=== PATIENT | female | born 1960 | race Caucasian/White ===

== ENCOUNTER → 2016-12-03 | Outpatient (CLI) | payer BC ==
[~2016-12-03] MED LIST: LACT1CAP8 PO; METO100T5 PO; MULT-245 PO; VALS1TAB8 PO
--- NOTE | 2016-12-04 09:33 | RAD ---
DATE: 12/03/2016 EXAM: MAMMO XUAN SCREENING BILATERAL HISTORY: Screening COMPARISON: 3 years earlier This study was interpreted with the benefit of Computerized Aided Detection (CAD). FINDINGS: The breast parenchyma shows scattered fibroglandular densities. Breast parenchyma level B. There has not been a significant change in the appearance of the breasts compared to the previous exam IMPRESSION: Benign finding BI-RADS CATEGORY: 2 BENIGN FINDING(S) RECOMMENDED FOLLOW-UP: 12M 12 MONTH FOLLOW-UP PQRS compliance statement: Patient information was entered into a reminder system with a target due date 12/03/2017 for the next mammogram. Mammography is a sensitive method for finding small breast cancers, but it does not detect them all and is not a substitute for careful clinical examination. A negative mammogram does not negate a clinically suspicious finding and should not result in delay in biopsying a clinically suspicious abnormality. "Our facility is accredited by the [employer] Mammography Program."
== END | disposition home or self-care (01) ==
LOC: MAMMO 12:39
PROVIDERS: ATTEND Nurse Practitioner Family
DX: Z12.31 Encounter for screening mammogram for malignant neoplasm of breast (principal)
CPT/HCPCS: 77063; G0202; 77067

== ENCOUNTER → 2017-12-20 | Outpatient (CLI) | payer BC ==
[2017-12-20 15:05] LABS: CALCIUM 9.2 mg/dL (8.5-10.1); CREATININE 0.8 mg/dL (0.6-1.0); GFR 73.7; POTASSIUM 3.9 mmol/L (3.5-5.1)
== END | disposition home or self-care (01) ==
LOC: LAB 14:25
PROVIDERS: ATTEND Internal Medicine Cardiovascular Disease
DX: I10 Essential (primary) hypertension (principal); E78.5 Hyperlipidemia, unspecified
CPT/HCPCS: 36415; 80048; 80061

== ENCOUNTER 2018-05-24 20:27 | Inpatient (IN) | payer BC ==
[~2018-05-24] VITALS: Ht 162.6 cm; Wt 93.2 kg
[2018-05-24] MEDS ORDERED: IV NORMAL SALINE 1,000ML 1,000 ML IV ONE ×2 (21:00→22:00)
[2018-05-24 21:27] LABS: BASO # 0.1 x10^3/uL (0.0-0.2); BASO % 1 % (0-3); EOS % 0 % (0-3); HEMATOCRIT 44.8 % (36.0-47.0); HEMOGLOBIN 15.4 g/dL (12.0-15.5); LYMPH # 1.5 x10^3/uL (1.0-4.8); LYMPH % 12 % (24-48); MEAN CORPUSCULAR HEMOGLOBIN 31 pg (25-35); MEAN CORPUSCULAR HGB CONC 34 g/dL (31-37); MEAN CORPUSCULAR VOLUME 91 fL (79-100); MONO % 8 % (0-9); NEUT # 10.8 x10^3uL (1.8-7.7); NEUT % 80 % (31-73); PLATELET COUNT 279 x10^3/uL (140-400); RED BLOOD COUNT 4.95 x10^6/uL (3.50-5.40); RED CELL DISTRIBUTION WIDTH 13.2 % (11.5-14.5); WHITE BLOOD COUNT 13.4 x10^3/uL (4.0-11.0)
[2018-05-24 21:35] LABS: BACTERIA,URINE MANY /HPF (0-FEW); BILIRUBIN,URINE NEG (NEG); CLARITY,URINE CLOUDY; COLOR,URINE YELLOW; GLUCOSE,URINE NEG (NEG); NITRITE,URINE NEG (NEG); RBC,URINE RARE /HPF (0-2); UROBILINOGEN,URINE 0.2 mg/dL (0.2 mg/dL); WBC,URINE >40 /HPF (0-4)
--- NOTE | 2018-05-24 21:58 | PHYS DOC ---
Past History Past Medical History: Hypertension Past Surgical History: Cholecystectomy, Hysterectomy Alcohol Use: None Drug Use: None Adult General Chief Complaint Chief Complaint: FEVER HPI HPI 57-year-old female presents with fever. Patient states she had a fever up to 103 today. She has been having dysuria and urinary frequency for the last 1 week. She has been trying to treat this naturally, realized it was not working when she developed a fever. She has had some nausea with no vomiting. She does not frequently have UTIs. She does not believe she is ever had a resistant UTI. Patient also reports an intermittent cough the last few days but it is not productive. Review of Systems Review of Systems Constitutional: Fever[] Eyes: Denies change in visual acuity, redness, or eye pain [] HENT: Denies nasal congestion or sore throat [] Respiratory: Denies cough or shortness of breath [] Cardiovascular: No additional information not addressed in HPI [] GI: Denies abdominal pain, nausea, vomiting, bloody stools or diarrhea [] : Dysuria and urinary frequency[] Musculoskeletal: Denies back pain or joint pain [] Integument: Denies rash or skin lesions [] Neurologic: Denies headache, focal weakness or sensory changes [] Endocrine: Denies polyuria or polydipsia [] All other systems were reviewed and found to be within normal limits, except as documented in this note. Current Medications Current Medications Current Medications Medications (Trade) Dose Ordered Sig/[facility] Start Time Stop Time Status Last Admin Dose Admin Ketorolac Tromethamine (Toradol 30mg Vial) 30 mg 1X ONCE 05/24/18 21:30 05/24/18 21:31 UNV Sodium Chloride 1,000 ml @ 1,000 mls/hr 1X ONCE 05/24/18 21:00 05/24/18 21:59 05/24/18 21:00 1,000 MLS/HR Allergies Allergies Allergies Coded Allergies Type Severity Reaction Last Updated Verified cephalexin Allergy Severe 05/24/18 Yes acetaminophen Allergy Mild Nausea 09/18/13 No oxycodone HCl Allergy Mild Nausea 09/18/13 No Physical Exam Physical Exam Constitutional: Well developed, well nourished, no acute distress, non-toxic appearance. [] HENT: Normocephalic, atraumatic, bilateral external ears normal, oropharynx dry , no oral exudates, nose normal. [] Eyes: PERRLA, EOMI, conjunctiva normal, no discharge. [] Neck: Normal range of motion, no tenderness, supple, no stridor. [] Cardiovascular:Heart rate regular rhythm, tachycardia, 120, no murmur [] Lungs & Thorax: Bilateral breath sounds clear to auscultation. Respirations 25. [] Abdomen: Bowel sounds normal, soft, no tenderness, no masses, no pulsatile masses. [] Skin: Warm, dry, no erythema, no rash. [] Back: No tenderness, no CVA tenderness. [] Extremities: No tenderness, no cyanosis, no clubbing, ROM intact, no edema. [] Neurologic: Alert and oriented X 3, normal motor function, normal sensory function, no focal deficits noted. [] Psychologic: Affect normal, judgement normal, mood normal. [] Current Patient Data Vital Signs Vital Signs Date Time Temp Pulse Resp B/P (MAP) Pulse Ox O2 Delivery O2 Flow Rate FiO2 05/24/18 20:36 102.6 120 20 Room Air Lab Results Laboratory Tests Test 05/24/18 20:59 White Blood Count 13.4 x10^3/uL (4.0-11.0) H Red Blood Count 4.95 x10^6/uL (3.50-5.40) Hemoglobin 15.4 g/dL (12.0-15.5) Hematocrit 44.8 % (36.0-47.0) Mean Corpuscular Volume 91 fL (79-100) Mean Corpuscular Hemoglobin 31 pg (25-35) Mean Corpuscular Hemoglobin Concent 34 g/dL (31-37) Red Cell Distribution Width 13.2 % (11.5-14.5) Platelet Count 279 x10^3/uL (140-400) Neutrophils (%) (Auto) 80 % (31-73) H Lymphocytes (%) (Auto) 12 % (24-48) L Monocytes (%) (Auto) 8 % (0-9) Eosinophils (%) (Auto) 0 % (0-3) Basophils (%) (Auto) 1 % (0-3) Neutrophils # (Auto) 10.8 x10^3uL (1.8-7.7) H Lymphocytes # (Auto) 1.5 x10^3/uL (1.0-4.8) Monocytes # (Auto) 1.0 x10^3/uL (0.0-1.1) Eosinophils # (Auto) 0.0 x10^3/uL (0.0-0.7) Basophils # (Auto) 0.1 x10^3/uL (0.0-0.2) Urine Collection Type Unknown Urine Color Yellow Urine Clarity Cloudy Urine pH 5.5 Urine Specific [place] 1.020 Urine Protein 100 mg/dl (NEG-TRACE) Urine Glucose (UA) Neg mg/dL (NEG) Urine Ketones (Stick) 15 mg/dL (NEG) Urine Blood Mod (NEG) Urine Nitrite Neg (NEG) Urine Bilirubin Neg (NEG) Urine Urobilinogen Dipstick 0.2 mg/dL (0.2 mg/dL) Urine Leukocyte Esterase Large (NEG) Urine RBC Rare /HPF (0-2) Urine WBC >40 /HPF (0-4) Urine Squamous Epithelial Cells None /LPF Urine Bacteria Many /HPF (0-FEW) Urine Mucus Slight /LPF EKG EKG [] Radiology/Procedures Radiology/Procedures [] Course & Med Decision Making Course & Med Decision Making Pertinent Labs and Imaging studies reviewed. (See chart for details) The patient has a suspected UTI. She has a temperature of 102.6. Her respirations are 25 a minute. Her blood pressure is within normal limits. Based on these, the patient meets criteria for possible sepsis. Fluids have been started. Labs are pending. As this is likely urinary, I will give her vancomycin and meropenem. Her white count is 13.4. Her urinalysis is positive for infection. I will have the patient admitted for UTI sepsis. I discussed the case with Dr. Aguila and he has accepted the patient for admission. Greater than 35 minutes of critical care time was performed on this patient exclusive of any other billable procedures. [] Dragon Disclaimer Dragon Disclaimer This electronic medical record was generated, in whole or in part, using a voice recognition dictation system. Departure Departure: Referrals: ADOLFO WALLS MD (PCP) YAMILET FRENCH DO May 24, 2018 21:58
[2018-05-24] MEDS ORDERED: KETOROLAC 30 MG/ML VIAL. IV ONE (22:00)
[2018-05-24 22:23] LABS: ALBUMIN 3.5 g/dL (3.4-5.0); CALCIUM 8.3 mg/dL (8.5-10.1); CREATININE 0.9 mg/dL (0.6-1.0); GFR 64.3; POTASSIUM 3.6 mmol/L (3.5-5.1); TOTAL BILIRUBIN 0.6 mg/dL (0.2-1.0); TOTAL PROTEIN 7.1 g/dL (6.4-8.2)
[2018-05-24] MEDS ORDERED: MEROPENEM 1 GM in IV NORMAL SALINE 100ML 100 ML IV STA (22:23)
[2018-05-24] MEDS ORDERED: MEROPENEM 1 GM VIAL IV ONE (22:25)
[2018-05-24] MEDS ORDERED: IV NORMAL SALINE 100ML 100 ML ONE (22:25)
[2018-05-24] MEDS ORDERED: VANCOMYCIN 2 GM in IV NORMAL SALINE 500ML 500 ML IV ONE (23:00)
[2018-05-24] MEDS ORDERED: ONDANSETRON PF 4 MG/2 ML VIAL. IV PRN (23:45)
[2018-05-24] MEDS ORDERED: IV NORMAL SALINE 1,000ML 500 ML IV SCH (23:45)
[2018-05-24] MEDS ORDERED: ONDANSETRON ODT 4 MG TAB.RAPDIS PO PRN (23:45)
[2018-05-24] MEDS ORDERED: IV NORMAL SALINE 1,000ML 1,000 ML IV SCH (23:45)
--- NOTE | 2018-05-24 23:45 | NUR ---
Pt was admitted from ER to [facility] room 115 via [facility], accompanied by EMS and nursing staff. Pt transferred over from gurney to bed independently. Pt then ambulated to bathroom with stand-by assist, steady gait noted. Pt here for fever, UTI and sepsis. Pt is A&Ox4, pleasant and cooperative. Pt currently denies pain or discomfort. Admission assessment completed. Health history and home medications reviewed with pt. VSS. Pt lives at home with . SCDs for VTE. Pt wants flu vaccine, order placed. Pt was given written information regarding hospital policies, unit procedures and contact persons. Valuables were checked and left at bedside. Call light within reach and bed alarm on. Pt given box lunch per request. IVF and Vanco started per order.
[2018-05-24] MEDS ORDERED: IV NORMAL SALINE 500ML 500 ML ONE (23:48)
[2018-05-24] MEDS ORDERED: VANCOMYCIN 1 GM VIAL. ONE (23:49)
[2018-05-25 00:08] VITALS: BP 146/85
[2018-05-25] MEDS ORDERED: VALS1TAB29 PO (00:52)
[2018-05-25] MEDS: IBUPROFEN 600 MG TABLET. PO PRN ×2 (05:07→19:55)
[2018-05-25 05:47] VITALS: BP 163/76
[2018-05-25 05:48] LABS: BASO # 0.1 x10^3/uL (0.0-0.2); BASO % 1 % (0-3); EOS # 0.1 x10^3/uL (0.0-0.7); EOS % 1 % (0-3); HEMATOCRIT 40.4 % (36.0-47.0); HEMOGLOBIN 13.6 g/dL (12.0-15.5); LYMPH # 2.3 x10^3/uL (1.0-4.8); LYMPH % 18 % (24-48); MEAN CORPUSCULAR HEMOGLOBIN 31 pg (25-35); MEAN CORPUSCULAR HGB CONC 34 g/dL (31-37); MEAN CORPUSCULAR VOLUME 92 fL (79-100); MONO # 1.8 x10^3/uL (0.0-1.1); MONO % 15 % (0-9); NEUT # 8.2 x10^3uL (1.8-7.7); NEUT % 66 % (31-73); PLATELET COUNT 234 x10^3/uL (140-400); RED BLOOD COUNT 4.38 x10^6/uL (3.50-5.40); RED CELL DISTRIBUTION WIDTH 13.1 % (11.5-14.5); WHITE BLOOD COUNT 12.4 x10^3/uL (4.0-11.0)
[2018-05-25 05:55] LABS: CALCIUM 8.1 mg/dL (8.5-10.1); CREATININE 0.8 mg/dL (0.6-1.0); GFR 73.7; POTASSIUM 3.7 mmol/L (3.5-5.1)
[2018-05-25] MEDS: IV NORMAL SALINE 1,000ML 1,000 ML IV SCH ×2 (08:18→19:55)
--- NOTE | 2018-05-25 08:42 | PDOC1 ---
History and Physical Date of Admission: Date of Admission: May 24, 2018 Chief Complaint: Chief Complain: Fever Source: Source: Caregiver, Chart review, Patient HPI: HPI: 57-year-old female presented to the [facility] emergency department with chief complaint of fever. Patient states she had a fever up to 103 degrees Fahrenheit at home. She had been having dysuria and urinary frequency for the last 1 week, trying to treat this naturally. She became concerned that her natural methods were not working when she developed a fever. She has had some nausea but no vomiting. She does not frequently have UTIs. She does not believe she is ever had a resistant UTI. Patient also reports an intermittent cough the last few days but it is not productive. In the emergency department she was found to have a temperature of 102.6F with a heart rate 120 bpm and 25 respirations per minute. White blood cell count 13.4, her lactic acid was 0.8 and urinalysis grossly positive for infection. She met criteria for possible sepsis and was started on meropenem and vancomycin, given IV hydration, admitted to the medical floor for treatment and await blood and urine cultures. Today she's been afebrile and states she is feeling much better. Denies any flank or abdominal pain no nausea chest pain or dyspnea. Past Medical History: Cardiovascular: HTN Renal/: UTI Past Surgical History: PSH: Cholecystectomy, hysterectomy Family History: Family History: Cancer (mother with kidney cancer), Hypertension (both parents) Social History: Smoke: No Alcohol: none Drugs: None Allergies: Allergies: Coded Allergies: cephalexin (Verified Allergy, Severe, 05/24/18) oxycodone HCl (Unverified Allergy, Mild, Nausea, 09/18/13) Current Medications: Current Medications: Current Medications Medications (Trade) Dose Ordered Sig/[facility] Start Time Stop Time Status Last Admin Dose Admin Ibuprofen (Motrin) 600 mg PRN Q6HRS PRN 05/24/18 23:45 05/25/18 05:07 600 MG Influenza Virus Vaccine (Afluria Trivalent [id number] Syringe) 0.5 ml ONCE ONCE 05/25/18 09:00 05/25/18 09:01 Ketorolac Tromethamine (Toradol 30mg Vial) 30 mg 1X ONCE 05/24/18 22:00 05/24/18 22:01 DC 05/24/18 22:33 30 MG Meropenem (Merrem) 1 gm STK-MED ONCE 05/24/18 22:25 05/24/18 22:26 DC Meropenem 1 gm/ Sodium Chloride 100 ml @ 200 mls/hr 1X STAT 05/24/18 22:23 05/24/18 22:52 DC 05/24/18 22:32 200 MLS/HR Ondansetron HCl (Zofran Odt) 4 mg PRN Q6HRS PRN 05/24/18 23:45 Ondansetron HCl (Zofran) 4 mg PRN Q4HRS PRN 05/24/18 23:45 05/25/18 23:44 Sodium Chloride 1,000 ml @ 100 mls/hr Q10H 05/25/18 08:15 05/25/18 08:18 100 MLS/HR Vancomycin HCl (Vancomycin) 1 gm STK-MED ONCE 05/24/18 23:49 05/24/18 23:50 DC Vancomycin HCl 2 gm/Sodium Chloride 500 ml @ 250 mls/hr 1X ONCE 05/24/18 23:00 05/25/18 00:59 DC 05/25/18 00:27 250 MLS/HR ROS: ROS: Constitutional: See history of present illness Eyes: No eye pain or blurred vision Skin: No rash or itching Cardiovascular: No chest pain, syncope, palpitations, dyspnea on exertion, has some chronic lower extremity edema states it's currently at baseline Respiratory: No cough or difficulty breathing Gastrointestinal: No nausea, vomiting, or abdominal pain Neurologic: No headaches or focal neurologic deficits Endocrine: No heat or cold intolerance Genitourinary: No incontinence see history of present illness Musculoskeletal: No joint pain or swelling Lymphatics: No enlarged lymph nodes Psychiatric: No anxiety or depression PE: PE: Gen.: Alert, pleasant, no apparent distress HEENT: Normocephalic atraumatic, PERRLA EOMI, no scleral icterus, oral mucosa pink and moist Neck: Supple, no lymphadenopathy, nontender Cardiovascular: Normal S1 and S2 no murmurs Pulmonary: Lungs are clear bilaterally with good air movement no respiratory distress Abdomen: Soft nontender non-distended, bowel sounds present no masses Extremities: No clubbing, cyanosis 1+ nonpitting lower extremity edema bilaterally reportedly at baseline Neuro: Alert and oriented 3, cranial nerves II through XII grossly intact, no lateralizing neuro deficits Skin: Warm, dry Vitals: Vitals: Vital Signs Date Time Temp Pulse Resp B/P (MAP) Pulse Ox O2 Delivery O2 Flow Rate FiO2 05/25/18 08:12 Room Air 05/25/18 05:47 99.6 104 20 163/76 (105) 97 Labs: Labs: Laboratory Tests Test 05/24/18 20:59 05/24/18 21:50 05/25/18 05:35 White Blood Count 13.4 x10^3/uL (4.0-11.0) 12.4 x10^3/uL (4.0-11.0) Red Blood Count 4.95 x10^6/uL (3.50-5.40) 4.38 x10^6/uL (3.50-5.40) Hemoglobin 15.4 g/dL (12.0-15.5) 13.6 g/dL (12.0-15.5) Hematocrit 44.8 % (36.0-47.0) 40.4 % (36.0-47.0) Mean Corpuscular Volume 91 fL (79-100) 92 fL (79-100) Mean Corpuscular Hemoglobin 31 pg (25-35) 31 pg (25-35) Mean Corpuscular Hemoglobin Concent 34 g/dL (31-37) 34 g/dL (31-37) Red Cell Distribution Width 13.2 % (11.5-14.5) 13.1 % (11.5-14.5) Platelet Count 279 x10^3/uL (140-400) 234 x10^3/uL (140-400) Neutrophils (%) (Auto) 80 % (31-73) 66 % (31-73) Lymphocytes (%) (Auto) 12 % (24-48) 18 % (24-48) Monocytes (%) (Auto) 8 % (0-9) 15 % (0-9) Eosinophils (%) (Auto) 0 % (0-3) 1 % (0-3) Basophils (%) (Auto) 1 % (0-3) 1 % (0-3) Neutrophils # (Auto) 10.8 x10^3uL (1.8-7.7) 8.2 x10^3uL (1.8-7.7) Lymphocytes # (Auto) 1.5 x10^3/uL (1.0-4.8) 2.3 x10^3/uL (1.0-4.8) Monocytes # (Auto) 1.0 x10^3/uL (0.0-1.1) 1.8 x10^3/uL (0.0-1.1) Eosinophils # (Auto) 0.0 x10^3/uL (0.0-0.7) 0.1 x10^3/uL (0.0-0.7) Basophils # (Auto) 0.1 x10^3/uL (0.0-0.2) 0.1 x10^3/uL (0.0-0.2) Urine Collection Type Unknown Urine Color Yellow Urine Clarity Cloudy Urine pH 5.5 Urine Specific [place] 1.020 Urine Protein 100 mg/dl (NEG-TRACE) Urine Glucose (UA) Neg mg/dL (NEG) Urine Ketones (Stick) 15 mg/dL (NEG) Urine Blood Mod (NEG) Urine Nitrite Neg (NEG) Urine Bilirubin Neg (NEG) Urine Urobilinogen Dipstick 0.2 mg/dL (0.2 mg/dL) Urine Leukocyte Esterase Large (NEG) Urine RBC Rare /HPF (0-2) Urine WBC >40 /HPF (0-4) Urine Squamous Epithelial Cells None /LPF Urine Bacteria Many /HPF (0-FEW) Urine Mucus Slight /LPF Lactic Acid Level 0.8 mmol/L (0.4-2.0) Sodium Level 132 mmol/L (136-145) 137 mmol/L (136-145) Potassium Level 3.6 mmol/L (3.5-5.1) 3.7 mmol/L (3.5-5.1) Chloride Level 99 mmol/L (98-107) 103 mmol/L (98-107) Carbon Dioxide Level 24 mmol/L (21-32) 25 mmol/L (21-32) Anion Gap 9 (6-14) 9 (6-14) Blood Urea Nitrogen 14 mg/dL (7-20) 15 mg/dL (7-20) Creatinine 0.9 mg/dL (0.6-1.0) 0.8 mg/dL (0.6-1.0) Estimated GFR (Cockcroft-Gault) 64.3 73.7 BUN/Creatinine Ratio 16 (6-20) Glucose Level 134 mg/dL (70-99) 107 mg/dL (70-99) Calcium Level 8.3 mg/dL (8.5-10.1) 8.1 mg/dL (8.5-10.1) Total Bilirubin 0.6 mg/dL (0.2-1.0) Aspartate Amino Transf (AST/SGOT) 21 U/L (15-37) Alanine Aminotransferase (ALT/SGPT) 35 U/L (14-59) Alkaline Phosphatase 69 U/L (46-116) Total Protein 7.1 g/dL (6.4-8.2) Albumin 3.5 g/dL (3.4-5.0) Albumin/Globulin Ratio 1.0 (1.0-1.7) VTE Prophylaxis: VTE Prophylaxis Devices: No VTE Pharmacological Prophylaxi: No (patient is ambulatory) Assessment/Plan: A/P: SIRS Urinary tract infection Hypertension Mild hyponatremia We will go ahead and continue meropenem and vancomycin initiated in the emergency department, good clinical response. Continue IV hydration. Change meds to by mouth when able based upon urine cultures and await blood cultures. LEXY HUANG DO May 25, 2018 08:42
[2018-05-25 10:13] VITALS: BP 120/78
[2018-05-25] MEDS ORDERED: ACETAMINOPHEN 500 MG TABLET PO ONE (14:30)
[2018-05-25] MEDS: MEROPENEM 1 GM in IV NORMAL SALINE 100ML 100 ML IV SCH ×2 (14:57→21:29)
[2018-05-25] MEDS ORDERED: VANCOMYCIN 1.5 GM in IV NORMAL SALINE 500ML 500 ML IV ONE (15:00)
[2018-05-25] MEDS ORDERED: VANCOMYCIN 1.5 GM in IV NORMAL SALINE 500ML 500 ML IV SCH (15:00)
[2018-05-25] MEDS ORDERED: ACETAMINOPHEN 500 MG TABLET PO PRN (15:00)
[2018-05-25 15:22] VITALS: BP 145/87
[2018-05-25] MEDS: VANCOMYCIN PER PHARMACY MC PRN (18:50)
--- NOTE | 2018-05-25 18:50 | NUR ---
Pharmacy Vancomycin Dosing Note S:Consulted to monitor and dose vancomycin started 05/25/18. O:FANNY MAYER is a 57 year old F with Sepsis UTI . Height: 5 feet, 4 inches Weight: 91.886644 kg [place] Body Weight: Adjusted Body Weight: Dosing Weight: Actual Other Antibiotics: MEROPENEM 1GRAM Q8HRS LABS: Last BUN: 15 Last Creatinine: 0.8 Creatinine Clearance: Last WBC: 12.4 Last Platelets: 234 Tmax (past 24 hours): Microbiology: I/O: Drug Levels: Last level: on at Last dose given 05/25/18 at 1457 Vancomycin Dosing: Loading Dose: 2000 mg x1 Dosing Weight: Actual Target Trough: 15-20 A: Based on: P: 1. Begin Vancomycin 1500 mg IV q12h 2. Follow up Trough level on 05/26/18 at 1130 3. Pharmacy will continue to monitor, follow and adjust therapy as needed. SAMINA SHORT, [facility], 05/25/18 [id number]
[2018-05-25 19:40] VITALS: BP 161/77
[2018-05-25] MEDS: hydroCHLOROthiazide 25 MG TABLET PO SCH (19:55)
[2018-05-25] MEDS: LOSARTAN 50 MG TABLET. PO SCH (19:56)
[2018-05-25] MEDS: LACTOBACILLUS RHAMNOSUS GG 1 CAPSULE. PO SCH (21:29)
[2018-05-25] MEDS: BENZONATATE 100 MG CAPSULE. PO PRN (21:31)
[2018-05-25 22:59] VITALS: BP 138/77
[2018-05-25] MEDS: VANCOMYCIN 1.5 GM in IV NORMAL SALINE 500ML 500 ML IV SCH (23:36)
[2018-05-26] MEDS: IV NORMAL SALINE 1,000ML 1,000 ML IV SCH ×3 (05:20→21:04)
[2018-05-26] MEDS: BENZONATATE 100 MG CAPSULE. PO PRN ×3 (05:21→21:02)
[2018-05-26] MEDS: IBUPROFEN 600 MG TABLET. PO PRN ×2 (05:21→21:03)
[2018-05-26] MEDS: MEROPENEM 1 GM in IV NORMAL SALINE 100ML 100 ML IV SCH ×3 (05:22→21:03)
[2018-05-26 06:05] VITALS: BP 144/79
[2018-05-26 06:43] LABS: BASO # 0.1 x10^3/uL (0.0-0.2); BASO % 1 % (0-3); EOS # 0.3 x10^3/uL (0.0-0.7); EOS % 4 % (0-3); HEMATOCRIT 38.4 % (36.0-47.0); HEMOGLOBIN 13.2 g/dL (12.0-15.5); LYMPH # 1.9 x10^3/uL (1.0-4.8); LYMPH % 20 % (24-48); MEAN CORPUSCULAR HEMOGLOBIN 31 pg (25-35); MEAN CORPUSCULAR HGB CONC 34 g/dL (31-37); MEAN CORPUSCULAR VOLUME 91 fL (79-100); MONO # 1.2 x10^3/uL (0.0-1.1); MONO % 12 % (0-9); NEUT # 6.1 x10^3uL (1.8-7.7); NEUT % 64 % (31-73); PLATELET COUNT 218 x10^3/uL (140-400); RED BLOOD COUNT 4.22 x10^6/uL (3.50-5.40); RED CELL DISTRIBUTION WIDTH 13.4 % (11.5-14.5); WHITE BLOOD COUNT 9.6 x10^3/uL (4.0-11.0)
[2018-05-26 06:45] LABS: CALCIUM 8.4 mg/dL (8.5-10.1); CREATININE 0.9 mg/dL (0.6-1.0); GFR 64.3; POTASSIUM 3.6 mmol/L (3.5-5.1)
[2018-05-26] MEDS: LOSARTAN 50 MG TABLET. PO SCH (08:09)
[2018-05-26] MEDS: LACTOBACILLUS RHAMNOSUS GG 1 CAPSULE. PO SCH ×2 (08:09→21:02)
[2018-05-26] MEDS: hydroCHLOROthiazide 25 MG TABLET PO SCH (08:10)
[2018-05-26] MEDS: METOPROLOL SUCC 24HR ER 50 MG TAB.ER.24H. PO SCH (08:11)
--- NOTE | 2018-05-26 09:05 | NUR ---
PT feeling warm today. PT is able to verbalize understanding of poc. Rosita GARCIA
[2018-05-26 10:55] VITALS: BP 134/84
[2018-05-26 12:06] LABS: VANC TR 11.5 mcg/mL (10.0-20.0)
[2018-05-26] MEDS: VANCOMYCIN 1.5 GM in IV NORMAL SALINE 500ML 500 ML IV SCH ×2 (12:39→23:54)
[2018-05-26] MEDS: VANCOMYCIN PER PHARMACY MC PRN (13:26)
--- NOTE | 2018-05-26 13:26 | NUR ---
Pharmacy Vancomycin Dosing Note S:Consulted to monitor and dose vancomycin started 05/25/18. O:FANNY MAYER is a 57 year old F with SIRS UTI . Height: 5 feet, 4 inches Weight: 92.969718 kg [place] Body Weight: 54.70 Adjusted Body Weight: 69.74 Dosing Weight: Actual Other Antibiotics: MEROPENEM 1GRAM Q8HRS LABS: Last BUN: 10 Last Creatinine: 0.9 Creatinine Clearance: 75 Last WBC: 9.6 Last Platelets: 218 TEMP LAST: 98.2 Microbiology: PENDING Vancomycin Dosing: Loading Dose: 2000 mg x1 Dosing Weight: Actual Target Trough: 15-20 A: Vanco trough was 11.5, however, the patient is improving and also receiving Merrem. P: 1. Continue Vancomycin 1500 mg IV q12h 2. Follow up Trough level in 5-7 days 3. Pharmacy will continue to monitor, follow and adjust therapy as needed. MARA JAIN [facility] 05/26/18 [id number]
[2018-05-26 16:51] VITALS: BP 151/91
[2018-05-26 19:40] VITALS: BP 145/84
--- NOTE | 2018-05-26 19:48 | PDOC ---
Progress Note. Subjective: Patient remains afebrile and reports she feels her baseline. I find her sitting up in bed she has reportedly been ambulatory with good by mouth intake and no new bowel or bladder symptoms. Specifically continues to deny abdominal pain flank pain frequency hesitancy or dysuria and no hematuria. Her white blood cell count has normalized today and chemistry remained stable. She is wanting to go home but understands the need to wait for urine culture and sensitivities. Denies any new questions or complaints. Objective: Vital Signs: Vital Signs Date Time Temp Pulse Resp B/P (MAP) Pulse Ox O2 Delivery O2 Flow Rate FiO2 05/26/18 16:51 98.6 76 151/91 (111) 97 Room Air 05/26/18 10:55 18 I & O: Intake and Output 05/26/18 07:00 Intake Total 4229 ml Output Total 3550 ml Balance 679 ml Intake Oral 1250 ml IV Total 2979 ml Output Urine Total 3550 ml Labs: Laboratory Tests Test 05/24/18 20:59 05/24/18 21:50 05/25/18 05:35 05/26/18 05:59 White Blood Count 13.4 x10^3/uL (4.0-11.0) 12.4 x10^3/uL (4.0-11.0) 9.6 x10^3/uL (4.0-11.0) Red Blood Count 4.95 x10^6/uL (3.50-5.40) 4.38 x10^6/uL (3.50-5.40) 4.22 x10^6/uL (3.50-5.40) Hemoglobin 15.4 g/dL (12.0-15.5) 13.6 g/dL (12.0-15.5) 13.2 g/dL (12.0-15.5) Hematocrit 44.8 % (36.0-47.0) 40.4 % (36.0-47.0) 38.4 % (36.0-47.0) Mean Corpuscular Volume 91 fL (79-100) 92 fL (79-100) 91 fL (79-100) Mean Corpuscular Hemoglobin 31 pg (25-35) 31 pg (25-35) 31 pg (25-35) Mean Corpuscular Hemoglobin Concent 34 g/dL (31-37) 34 g/dL (31-37) 34 g/dL (31-37) Red Cell Distribution Width 13.2 % (11.5-14.5) 13.1 % (11.5-14.5) 13.4 % (11.5-14.5) Platelet Count 279 x10^3/uL (140-400) 234 x10^3/uL (140-400) 218 x10^3/uL (140-400) Neutrophils (%) (Auto) 80 % (31-73) 66 % (31-73) 64 % (31-73) Lymphocytes (%) (Auto) 12 % (24-48) 18 % (24-48) 20 % (24-48) Monocytes (%) (Auto) 8 % (0-9) 15 % (0-9) 12 % (0-9) Eosinophils (%) (Auto) 0 % (0-3) 1 % (0-3) 4 % (0-3) Basophils (%) (Auto) 1 % (0-3) 1 % (0-3) 1 % (0-3) Neutrophils # (Auto) 10.8 x10^3uL (1.8-7.7) 8.2 x10^3uL (1.8-7.7) 6.1 x10^3uL (1.8-7.7) Lymphocytes # (Auto) 1.5 x10^3/uL (1.0-4.8) 2.3 x10^3/uL (1.0-4.8) 1.9 x10^3/uL (1.0-4.8) Monocytes # (Auto) 1.0 x10^3/uL (0.0-1.1) 1.8 x10^3/uL (0.0-1.1) 1.2 x10^3/uL (0.0-1.1) Eosinophils # (Auto) 0.0 x10^3/uL (0.0-0.7) 0.1 x10^3/uL (0.0-0.7) 0.3 x10^3/uL (0.0-0.7) Basophils # (Auto) 0.1 x10^3/uL (0.0-0.2) 0.1 x10^3/uL (0.0-0.2) 0.1 x10^3/uL (0.0-0.2) Urine Collection Type Unknown Urine Color Yellow Urine Clarity Cloudy Urine pH 5.5 Urine Specific [place] 1.020 Urine Protein 100 mg/dl (NEG-TRACE) Urine Glucose (UA) Neg mg/dL (NEG) Urine Ketones (Stick) 15 mg/dL (NEG) Urine Blood Mod (NEG) Urine Nitrite Neg (NEG) Urine Bilirubin Neg (NEG) Urine Urobilinogen Dipstick 0.2 mg/dL (0.2 mg/dL) Urine Leukocyte Esterase Large (NEG) Urine RBC Rare /HPF (0-2) Urine WBC >40 /HPF (0-4) Urine Squamous Epithelial Cells None /LPF Urine Bacteria Many /HPF (0-FEW) Urine Mucus Slight /LPF Lactic Acid Level 0.8 mmol/L (0.4-2.0) Sodium Level 132 mmol/L (136-145) 137 mmol/L (136-145) 139 mmol/L (136-145) Potassium Level 3.6 mmol/L (3.5-5.1) 3.7 mmol/L (3.5-5.1) 3.6 mmol/L (3.5-5.1) Chloride Level 99 mmol/L (98-107) 103 mmol/L (98-107) 105 mmol/L (98-107) Carbon Dioxide Level 24 mmol/L (21-32) 25 mmol/L (21-32) 26 mmol/L (21-32) Anion Gap 9 (6-14) 9 (6-14) 8 (6-14) Blood Urea Nitrogen 14 mg/dL (7-20) 15 mg/dL (7-20) 10 mg/dL (7-20) Creatinine 0.9 mg/dL (0.6-1.0) 0.8 mg/dL (0.6-1.0) 0.9 mg/dL (0.6-1.0) Estimated GFR (Cockcroft-Gault) 64.3 73.7 64.3 BUN/Creatinine Ratio 16 (6-20) Glucose Level 134 mg/dL (70-99) 107 mg/dL (70-99) 99 mg/dL (70-99) Calcium Level 8.3 mg/dL (8.5-10.1) 8.1 mg/dL (8.5-10.1) 8.4 mg/dL (8.5-10.1) Total Bilirubin 0.6 mg/dL (0.2-1.0) Aspartate Amino Transf (AST/SGOT) 21 U/L (15-37) Alanine Aminotransferase (ALT/SGPT) 35 U/L (14-59) Alkaline Phosphatase 69 U/L (46-116) Total Protein 7.1 g/dL (6.4-8.2) Albumin 3.5 g/dL (3.4-5.0) Albumin/Globulin Ratio 1.0 (1.0-1.7) Test 05/26/18 11:25 Vancomycin Level Trough 11.5 mcg/mL (10.0-20.0) Vancomycin Last Dose Date 05/26/18 Vancomycin Last Dose Time 0000 Physical Exam: Gen.: Alert, pleasant, no apparent distress HEENT: Normocephalic atraumatic, PERRLA EOMI, no scleral icterus, oral mucosa pink and moist Neck: Supple, no lymphadenopathy, nontender Cardiovascular: Normal S1 and S2 no murmurs Pulmonary: Lungs are clear bilaterally with good air movement no respiratory distress Abdomen: Soft nontender non-distended, bowel sounds present no masses Extremities: No clubbing, cyanosis or edema Neuro: Alert and oriented 3, cranial nerves II through XII grossly intact, no lateralizing neuro deficits Skin: Warm, dry Assessment: SIRS Urinary tract infection Hypertension Mild hyponatremia We will go ahead and continue meropenem and vancomycin initiated in the emergency department, good clinical response. Change meds to by mouth when able based upon urine cultures and await blood cultures. Continue to encourage ambulation. LEXY HUANG DO May 26, 2018 19:48
[2018-05-26 22:30] VITALS: BP 151/79
[2018-05-27] MEDS: MEROPENEM 1 GM in IV NORMAL SALINE 100ML 100 ML IV SCH ×3 (05:30→21:46)
[2018-05-27] MEDS: METOPROLOL SUCC 24HR ER 50 MG TAB.ER.24H. PO SCH ×2 (09:00→09:22)
[2018-05-27] MEDS: hydroCHLOROthiazide 25 MG TABLET PO SCH (09:22)
[2018-05-27] MEDS: LACTOBACILLUS RHAMNOSUS GG 1 CAPSULE. PO SCH ×2 (09:22→19:53)
[2018-05-27] MEDS: LOSARTAN 50 MG TABLET. PO SCH (09:23)
[2018-05-27] MEDS: IV NORMAL SALINE 1,000ML 1,000 ML IV SCH ×2 (10:15→19:53)
[2018-05-27] MEDS: VANCOMYCIN 1.5 GM in IV NORMAL SALINE 500ML 500 ML IV SCH ×2 (11:32→23:21)
[2018-05-27 11:33] VITALS: BP 149/87
[2018-05-27] MEDS: BENZONATATE 100 MG CAPSULE. PO PRN ×2 (14:33→23:28)
[2018-05-27 16:17] VITALS: BP 134/85
[2018-05-27 19:40] VITALS: BP 160/78
[2018-05-28] MEDS: MEROPENEM 1 GM in IV NORMAL SALINE 100ML 100 ML IV SCH ×2 (05:01→14:55)
[2018-05-28 06:09] VITALS: BP 132/87
[2018-05-28] MEDS: METOPROLOL SUCC 24HR ER 50 MG TAB.ER.24H. PO SCH (09:00)
[2018-05-28] MEDS: LACTOBACILLUS RHAMNOSUS GG 1 CAPSULE. PO SCH (09:44)
[2018-05-28] MEDS: hydroCHLOROthiazide 25 MG TABLET PO SCH (09:44)
[2018-05-28] MEDS: LOSARTAN 50 MG TABLET. PO SCH (09:44)
[2018-05-28 10:48] VITALS: BP 155/82
[2018-05-28] MEDS: VANCOMYCIN 1.5 GM in IV NORMAL SALINE 500ML 500 ML IV SCH (12:32)
--- NOTE | 2018-05-28 14:39 | PDOC3 ---
Discharge Summary Visit Information: Date of Admission: May 25, 2018 Date of Discharge: May 28, 2018 Admitting Diagnosis: see problem list below Final Diagnosis Problems Medical Problems: (1) Sepsis Status: Acute (2) UTI (urinary tract infection) Status: Acute Problems: (1) Hyponatremia (2) Hypertension Qualifiers: Qualified Codes: I10 - Essential (primary) hypertension (3) Sepsis Qualifiers: Qualified Codes: A41.51 - Sepsis due to Escherichia coli [e. coli] (4) UTI (urinary tract infection) Qualifiers: Qualified Codes: N30.00 - Acute cystitis without hematuria Brief Hospital Course: Allergies: Allergies Coded Allergies Type Severity Reaction Last Updated Verified cephalexin Allergy Severe 05/24/18 Yes oxycodone HCl Allergy Mild Nausea 09/18/13 No Vital Signs: Vital Signs Date Time Temp Pulse Resp B/P (MAP) Pulse Ox O2 Delivery O2 Flow Rate FiO2 05/28/18 10:48 98.0 93 20 155/82 (106) 96 Room Air PE: Gen.: Alert, pleasant, no apparent distress HEENT: Normocephalic atraumatic, PERRLA EOMI, no scleral icterus, oral mucosa pink and moist Neck: Supple, no lymphadenopathy, nontender Cardiovascular: Normal S1 and S2 no murmurs Pulmonary: Lungs are clear bilaterally with good air movement no respiratory distress Abdomen: Soft nontender non-distended, bowel sounds present no masses Extremities: No clubbing, cyanosis or edema Neuro: Alert and oriented 3, cranial nerves II through XII grossly intact, no lateralizing neuro deficits Skin: Warm, dry Brief Hospital Course: Ms. Perez is a 57 old female who presented to the [facility] ED with fever, nausea, and malaise. She reported that symptoms had been worsening for the past 1-2 days and was found in the ED to be febrile 103 degrees fahrenheit with heart rate 120bpm and 25 respirations/minute. Labs revealed UTI and mild leukocytosis, lactic acid was not elevated above 2.0. Sepsis protocol IV hydration as well as IV meropenem/vancomycin initiated in the ED. Her VS normalized within 24 hours and she remained asymptomatic awaiting urine culture results. Blood cultures negative, grew out E. coli broad sensitivities in urine and she was discharged home to continue PO doxycycline based upon urine sensitivities. Discharge Information: Condition at Discharge: Improved Follow Up: Weeks Disposition/Orders: D/C to Home Home Meds: Active Scripts Doxycycline Hyclate (DOXYCYCLINE HYCLATE) 100 Mg Capsule, 1 CAP PO BID, #20 CAP Prov:LEXY HUANG DO 05/28/18 Reported Medications Valsartan/Hydrochlorothiazide (VALSARTAN-HCTZ 160-25 MG TAB) 1 Each Tablet, 1 TAB PO DAILY for Hypertension LAST DOSE GIVEN: DATE: TIME: NEXT DOSE DUE: DATE: TIME: 05/25/18 Patient Instructions: Patient Instuctions She used to follow with Dr Alvarenga, has seen Dr Barfield once. She has requested to follow up with me in clinic. Follow up next in the clinic to recheck symptoms and urine and establish health maintenance. LEXY HUANG DO May 28, 2018 14:39
[2018-05-28] MEDS ORDERED: DOXY100C2 PO (14:41)
--- NOTE | 2018-05-28 16:16 | NUR ---
Pt discharged home for self care. Pt given verbal and written discharge, follow up, and medication instructions and verbal understanding received from pt. Pt left unit in stable condition via ambulation.
== END 2018-05-28 13:30 | disposition home or self-care (01) | DRG 872 ==
LOC: ER 20:27 → 1 SOUTH 22:33
PROVIDERS: ADMIT Neuromusculoskeletal Medicine & OMM; ATTEND Neuromusculoskeletal Medicine & OMM
DX: A41.51 Sepsis due to Escherichia coli [E. coli] (principal); E87.1 Hypo-osmolality and hyponatremia; N30.00 Acute cystitis without hematuria; I10 Essential (primary) hypertension; Z23 Encounter for immunization; Z80.51 Family history of malignant neoplasm of kidney; Z79.899 Other long term (current) drug therapy; Z82.49 Family history of ischemic heart disease and other diseases of the circulatory system; Z90.710 Acquired absence of both cervix and uterus; Z90.49 Acquired absence of other specified parts of digestive tract; Z88.1 Allergy status to other antibiotic agents; Z88.5 Allergy status to narcotic agent
CPT/HCPCS: 36415; 80048; 80053; 80202; 81001; 83605; 85025; 87040; 87086; 87186; 90471; 90756; 96361; 96365; 96375; J1885; J2185; J3370; J7040; 99291-25; J7030; Q2035

== ENCOUNTER → 2019-08-28 | Outpatient (CLI) | payer BC ==
[~2019-08-28] MED LIST changes: +DOXY100C2 PO; +VALS1TAB29 PO
[2019-08-28 10:49] LABS: BASO % 1 % (0-3); EOS % 0 % (0-3); HEMATOCRIT 44.9 % (36.0-47.0); HEMOGLOBIN 14.9 g/dL (12.0-15.5); LYMPH % 10 % (24-48); MEAN CORPUSCULAR HEMOGLOBIN 30 pg (25-35); MEAN CORPUSCULAR HGB CONC 33 g/dL (31-37); MEAN CORPUSCULAR VOLUME 91 fL (79-100); MONO % 10 % (0-9); NEUT # 7.8 x10^3uL (1.8-7.7); NEUT % 79 % (31-73); PLATELET COUNT 211 x10^3/uL (140-400); RED BLOOD COUNT 4.93 x10^6/uL (3.50-5.40); RED CELL DISTRIBUTION WIDTH 13.5 % (11.5-14.5); WHITE BLOOD COUNT 9.8 x10^3/uL (4.0-11.0)
[2019-08-28 10:58] LABS: ALBUMIN 3.5 g/dL (3.4-5.0); ALBUMIN/GLOBULIN RATIO 0.8 (1.0-1.7); CALCIUM 8.8 mg/dL (8.5-10.1); GFR 56.6; TOTAL BILIRUBIN 0.4 mg/dL (0.2-1.0); TOTAL PROTEIN 7.8 g/dL (6.4-8.2)
--- NOTE | 2019-08-28 10:58 | RAD ---
EXAM: CT ABDOMEN/PELVIS WITHOUT CONTRAST. HISTORY: Fever, abdominal pain, nausea. TECHNIQUE: Computed tomography of the abdomen and pelvis was performed without intravenous contrast. One or more of the following individualized dose reduction techniques were utilized for this examination: 1. Automated exposure control. 2. Adjustment of the mA and/or kV according to patient size. 3. Use of iterative reconstruction technique. COMPARISON: 08/29/2013. FINDINGS: Lung windows through the visualized portions of the bases reveal no abnormality. Bone windows reveal no suspicious lesions. An ill-defined soft tissue attenuation region at the left lower pole is associated with stranding. The region measures approximately 4.3 cm and was not seen on the prior study. Other masses bilaterally in the kidneys have increased in size but are typical of cysts. A few contain dense material which may represent milk of calcium. The largest laterally on the left measures 2.6 cm. The gallbladder is surgically absent. Mild diffuse hepatic steatosis is suspected. A 9 mm nodule medially in the left adrenal gland has been stable chronically and is likely a small adenoma. The spleen is unremarkable. There are no pathologically enlarged lymph nodes. The appendix is not inflamed. There is no small bowel obstruction. The uterus is surgically absent. IMPRESSION: 1. An ill-defined 4 cm masslike region at the left renal lower pole is incompletely characterized without contrast. Considerations include focal pyelonephritis or renal cell carcinoma. Contrast enhanced CT or MRI is recommended for further evaluation. 2. Other bilateral renal masses have increased since 2013 but are likely benign as above. 3. Mild diffuse hepatic steatosis. Electronically signed by: Amanda Nj MD (08/28/2019 10:55 AM) [facility]
[2019-08-28 11:56] LABS: SEDIMENTATION RATE 37 (0-25)
== END | disposition home or self-care (01) ==
LOC: CT 09:05
PROVIDERS: ATTEND Physician Assistant Medical
DX: D35.00 Benign neoplasm of unspecified adrenal gland (principal); K76.0 Fatty (change of) liver, not elsewhere classified; R50.9 Fever, unspecified; R11.0 Nausea; Z90.49 Acquired absence of other specified parts of digestive tract; Z90.710 Acquired absence of both cervix and uterus
CPT/HCPCS: 36415; 74176; 80053; 85025; 85651; 87086

== ENCOUNTER → 2019-09-04 | Outpatient (CLI) | payer BC ==
[~2019-09-04] MED LIST changes: +CONTRAST GIVEN MC PRN; +IOHEXOL 240 MG/ML 50ML VIAL. ONE; +IOHEXOL 240 MG/ML 50ML VIAL. PO ONE; +IOHEXOL 300 MG/ML 75 ML VIAL. IV ONE
--- NOTE | 2019-09-04 09:59 | RAD ---
EXAM: Chest, 2 views. HISTORY: Cough. COMPARISON: None. FINDINGS: 2 views of chest are obtained. There is mild diffuse increased interstitial opacity. There is no consolidation, pleural effusion or pneumothorax. There is a prominent cardiac silhouette. There is a suspected bone island within the right humeral head. IMPRESSION: Mild diffuse increased interstitial opacity suggesting chronic interstitial change. No consolidated infiltrate is seen. Electronically signed by: Susanne Lopez MD (09/04/2019 9:56 AM) [id number]
--- NOTE | 2019-09-04 15:11 | RAD ---
EXAM: CT Abdomen and Pelvis with IV contrast INDICATION: Renal mass seen on previous CT without IV contrast. Follow-up with IV contrast recommended. Prior study was performed because of abdominal pain, fever and nausea. TECHNIQUE: Multi-detector row CT images were acquired from the lung bases through the abdomen and pelvis with the use of IV contrast. Sagittal and coronal images were acquired from the transaxial data. All CT scans performed at this facility utilize dose optimization techniques as appropriate to the exam, including the following: Automated exposure control and adjustment of the mA and/or KV according to patient size (this includes techniques or standardized protocols for targeted exams where dose is indication/reason for exam). IV CONTRAST: Administered ORAL CONTRAST: Administered COMPARISON: Noncontrast abdomen and pelvis CT of 08/28/2019 FINDINGS: LOWER CHEST: Unremarkable LIVER: Unremarkable BILIARY SYSTEM: Gallbladder is surgically absent. Bile ducts are not dilated. PANCREAS: Unremarkable SPLEEN: Unremarkable ADRENALS: Unremarkable KIDNEYS & URETERS: Bilateral renal cortical lesions compatible with cysts are present at the inferior pole left kidney in the area of ill-defined masslike fullness, a nonenhancing 3 cm lesion is seen with surrounding parenchymal hypoenhancement and perirenal soft tissue stranding. BLADDER: Unremarkable REPRODUCTIVE ORGANS: Hysterectomy GASTROINTESTINAL: The stomach, small bowel, and colon are unremarkable. The appendix is normal. MESENTERY/PERITONEUM/RETROPERITONEUM: Unremarkable VASCULAR: Unremarkable LYMPH NODES: No adenopathy OSSEOUS & SOFT TISSUES: Unremarkable IMPRESSION: The inferior pole left renal lesion seen on noncontrast CT most likely represents a 3 cm renal abscess. Follow-up after appropriate medical and interventional therapy would be helpful in confirming resolution. Electronically signed by: Steve Rojas MD (09/04/2019 3:08 PM) [facility]
== END | disposition home or self-care (01) ==
LOC: CT 09:16
PROVIDERS: ATTEND Physician Assistant Medical
DX: N28.89 Other specified disorders of kidney and ureter (principal); R05 Cough
CPT/HCPCS: 71046; 74177; Q9966; Q9967

== ENCOUNTER → 2019-09-29 | Outpatient (CLI) | payer BC ==
[~2019-09-29] MED LIST changes: -CONTRAST GIVEN MC PRN; -IOHEXOL 240 MG/ML 50ML VIAL. ONE; -IOHEXOL 240 MG/ML 50ML VIAL. PO ONE; -IOHEXOL 300 MG/ML 75 ML VIAL. IV ONE
--- NOTE | 2019-09-29 16:13 | RAD ---
INDICATION: Chest congestion COMPARISON: September 04, 2019 FINDINGS: 2 view of chest obtained. Mild interstitial opacities bilaterally which appears slightly increased from prior. Enlarged cardiomediastinal silhouette. Right-sided PICC line is seen with tip near atriocaval junction degenerative changes the spine. IMPRESSION: * Interval slight increase in interstitial opacities bilaterally which could be secondary to mild edema or interstitial infiltrate. * Enlarged cardiomediastinal Silhouette which can be seen with pericardial effusion and/or cardiomegaly. Electronically signed by: Siddhartha Saldivar MD (09/29/2019 4:10 PM) [facility] [place]
== END | disposition home or self-care (01) ==
LOC: DXRAD 10:18
PROVIDERS: ATTEND Physician Assistant Medical
DX: R09.89 Other specified symptoms and signs involving the circulatory and respiratory systems (principal)
CPT/HCPCS: 71046

== ENCOUNTER → 2019-10-05 | Outpatient (CLI) | payer BC ==
--- NOTE | 2019-10-05 15:28 | RAD ---
CT CHEST WO CONTRAST Indication: Abnormal chest x-ray. Exposure: One or more of the following individualized dose reduction techniques were utilized for this examination: 1. Automated exposure control 2. Adjustment of the mA and/or kV according to patient size 3. Use of iterative reconstruction technique. Technique: Standard imaging without intravenous contrast. Comparison: None. Correlation with chest radiograph of 09/29/2019. FINDINGS: Aorta is mildly calcified. No evidence of aortic aneurysm. Vascular exam otherwise limited without intravenous contrast. Thyroid appears unremarkable. No evidence of pathologic axillary lymph node enlargement. Mildly enlarged mediastinal lymph node is identified. Precarinal lymph node measures 12 mm in short axis. Difficult to evaluate hilar lymph nodes without intravenous contrast. Small bilateral pleural effusions, slightly greater on the right. These demonstrate simple density measurements. Cardiomegaly. Small pericardial effusion. Mild coronary artery calcification. No evidence of pulmonary mass or consolidating infiltrate. There is thickening of the intralobular septa, particularly in the lung bases, most likely due to pulmonary edema, although interstitial infiltrate could be considered. Trachea and mainstem bronchi are patent. No evidence of pneumothorax. Vertebral body height is intact. Degenerative spondylosis. No aggressive bone destruction. Scans to the upper abdomen are limited by technique. Multiple bilateral renal lesions are identified in the upper kidneys. 4 lesions on the right are measured and all measure less than 20 Hounsfield units. 3 left renal lesions are measured, also less than 20 Hounsfield units each. These appear similar as prior abdomen CT of 09/04/2019. There is a small dense focus within the posterior left kidney measuring 3 mm. This measures calcific density, and is stable since the prior exam. IMPRESSION: 1. Thickening of the intralobular septa, greatest in the lower lungs bilaterally. This most likely represents pulmonary edema. Interstitial infiltrate could also be considered. There are also small pleural effusions. 2. Mildly enlarged mediastinal lymph node. This is nonspecific but could be reactive. 3. Small pericardial effusion. Cardiomegaly. Electronically signed by: Miguel Mcdonald MD (10/05/2019 3:25 PM) [id number]
== END | disposition home or self-care (01) ==
LOC: CT 09:56
PROVIDERS: ATTEND Physician Assistant Medical
DX: J90 Pleural effusion, not elsewhere classified (principal); R91.8 Other nonspecific abnormal finding of lung field; I31.3 Pericardial effusion (noninflammatory); I70.0 Atherosclerosis of aorta; M47.814 Spondylosis without myelopathy or radiculopathy, thoracic region; N28.89 Other specified disorders of kidney and ureter; J92.9 Pleural plaque without asbestos; I51.7 Cardiomegaly
CPT/HCPCS: 71250